=== PATIENT | male | born 1980 | race Hispanic/Latino ===

== ENCOUNTER 2020-02-14 11:59 | Emergency (ER) | payer SELFPAY ==
[~2020-02-14] VITALS: Ht 170.2 cm; Wt 63.6 kg
[~2020-02-14 11:59] MED LIST: CEPHALEXIN500 MG PO
[2020-02-14] MEDS ORDERED: NAPROXEN500 MG PO (12:44)
[2020-02-14 12:52] VITALS: BP 134/81
== END 2020-02-14 13:00 | disposition home or self-care (01) | DRG 563 ==
LOC: ED 11:59
DX: S82.62XA Displaced fracture of lateral malleolus of left fibula, initial encounter for closed fracture (principal); S96.912A Strain of unspecified muscle and tendon at ankle and foot level, left foot, initial encounter; W11.XXXA Fall on and from ladder, initial encounter; Y92.89 Other specified places as the place of occurrence of the external cause; Y99.0 Civilian activity done for income or pay